=== PATIENT | female | born 1965 | race Caucasian/White ===

== ENCOUNTER 2017-09-11 04:19 | Emergency (ER) | payer OTHER ==
[2017-09-11] MEDS ORDERED: methylPREDNISolone Sodium Succinate 125 MG/2 ML SDV IVPUSH ONE (04:46)
[2017-09-11] MEDS ORDERED: Albuterol/Ipratropium 3.0-0.5 MG/3 ML Neb Soln NEB ONE (04:47)
[2017-09-11] MEDS ORDERED: Albuterol 0.083% 2.5 MG/3 ML Neb Soln NEB ONE (05:21)
[2017-09-11] MEDS ORDERED: Azithromycin 250 MG Tab PO ONE (05:21)
--- NOTE | 2017-09-11 05:37 | EDM.PDOC ---
ED HPI GENERAL MEDICAL PROBLEM - General Chief Complaint: Abdominal Pain Stated Complaint: TROUBLE BREATHING AND ABD PAIN [id number] Time Seen by Provider: 09/11/17 04:30 Source of Information: Reports: Patient History Limitations: Reports: No Limitations - History of Present Illness INITIAL COMMENTS - FREE TEXT/NARRATIVE: c/o difficulty with asthma, and cough. Feeling SOB and RUQ pain No fever or chills. Inhalers not helping Cough productive thick at times. Had recently comleted course of Doxy for bronchitis. 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: Other Medication(s) Right Upper Abdominal Pain Score (Numeric/FACES): 4 - Related Data Allergies Allergy/AdvReac Type Severity Reaction Status Date / Time levofloxacin [From Levaquin] Allergy Hives Verified 09/11/17 04:54 Home Meds: Home Meds Albuterol Sulfate [Proventil Hfa] 1 puff INH ASDIRECTED 09/11/17 [History] Cetirizine [ZyrTEC] 1 tab PO DAILY 09/11/17 [History] Mometasone/Formoterol [Dulera 200-5 MCG] 2 inh INH BID 09/11/17 [History] Montelukast [Singulair] 1 tab PO DAILY 09/11/17 [History] Omeprazole 1 cap PO DAILY 09/11/17 [History] Past Medical History HEENT History: Reports: Impaired Vision Respiratory History: Reports: Asthma, Bronchitis, Recurrent Gastrointestinal History: Reports: GERD, Pancreatitis 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 OB/BYN History: hysterectomy - Past Surgical History HEENT Surgical History: Reports: Tonsillectomy GI Surgical History: Reports: Appendectomy, Cholecystectomy Musculoskeletal Surgical History: Reports: Other (See Below) Other Musculoskeletal Surgeries/Procedures:: ankle surgery Social & Family History - Tobacco Use Smoking Status *Q: Current Every Day Smoker Years of Tobacco use: 10 Packs/Tins Daily: 1 Second Hand Smoke Exposure: Yes - Caffeine Use Caffeine Use: Reports: Coffee, Soda - Recreational Drug Use Recreational Drug Use: No ED ROS GENERAL - Review of Systems Review Of Systems: See Below Constitutional: Reports: Fever, Malaise, Decreased Appetite HEENT: Reports: No Symptoms Respiratory: Reports: Shortness of Breath, Wheezing, Cough, Sputum Cardiovascular: Reports: No Symptoms GI/Abdominal: Reports: Abdominal Pain (RQ) : Reports: No Symptoms Musculoskeletal: Reports: No Symptoms Skin: Reports: No Symptoms Neurological: Reports: No Symptoms ED EXAM, GENERAL - Physical Exam Exam: See Below Exam Limited By: No Limitations General Appearance: Alert, Mild Distress Eye Exam: Bilateral Eye: EOMI Ears: Normal External Exam Nose: Normal Inspection Throat/Mouth: Normal Inspection Head: Atraumatic, Other Neck: Normal Inspection Respiratory/Chest: Decreased Breath Sounds, Rhonchi (right), Wheezing ( inspiratory expiratory bilateral) Cardiovascular: Normal Peripheral Pulses, Regular Rate, Rhythm, No Edema GI/Abdominal: Normal Bowel Sounds, Soft, Tender (RUQ) Extremities: Normal Inspection Neurological: Alert, Oriented, Normal Cognition Psychiatric: Normal Affect Skin Exam: Warm, Dry, Intact, Normal Color Course - Vital Signs Last Recorded V/S: Last Vital Signs Temp 97.9 F 09/11/17 04:30 Pulse 93 09/11/17 04:30 Resp 23 H 09/11/17 04:30 BP 137/90 09/11/17 04:30 Pulse Ox 96 09/11/17 04:30 - Orders/Labs/Meds Orders: Active Orders 24 hr Category Date Time Status RT Aerosol Therapy [RC] ASDIRECTED Care 09/11/17 04:47 Active RT Aerosol Therapy [RC] ASDIRECTED Care 09/11/17 05:21 Active Labs: Laboratory Tests 09/11/17 09/11/17 09/11/17 Range/Units 04:56 04:56 04:56 WBC 11.0 H (5.0-10.0) 10^3/uL RBC 5.38 (4.2-5.4) 10^6/uL Hgb 16.2 H (12.0-16.0) g/dL Hct 48.7 H (37.0-47.0) % MCV 90.5 (80-100) fL MCH 30.1 (27.0-34.0) pg MCHC 33.3 (33.0-35.0) g/dL Plt Count 259 (150-450) 10^3/uL Neut % (Auto) 62.8 (42.2-75.2) % Lymph % (Auto) 27.8 (20.5-50.1) % [place] % (Auto) 5.9 (2-8) % Eos % (Auto) 3.1 H (1.0-3.0) % Baso % (Auto) 0.4 (0.0-1.0) % Sodium 140 (135-145) mmol/L Potassium 3.9 (3.6-5.0) mmol/L Chloride 107 (101-111) mmol/L Carbon Dioxide 26.0 (21.0-31.0) mmol/L Anion Gap 10.9 BUN 16 (7-18) mg/dL Creatinine 1.0 (0.6-1.3) mg/dL Est Cr Clr Drug Dosing 64.72 mL/min Estimated GFR (MDRD) 58 BUN/Creatinine Ratio 16.00 Glucose 102 (74-105) mg/dL Lactic Acid 0.9 (0.5-2.2) mmol/L Calcium 9.8 (8.4-10.2) mg/dl Total Bilirubin 1.0 (0.2-1.0) mg/dL AST 46 H (10-42) IU/L ALT 99 H (10-60) IU/L Alkaline Phosphatase 74 (42-121) IU/L Total Protein 7.6 (6.7-8.2) g/dl Albumin 4.4 (3.2-5.5) g/dl Globulin 3.2 Albumin/Globulin Ratio 1.38 Amylase 69 (28-100) U/L Lipase 40 (22-51) U/L Meds: Medications Discontinued Medications Generic Name Dose Route Start Last Admin Trade Name Freq PRN Reason Stop Dose Admin Albuterol 2.5 mg 09/11/17 05:21 09/11/17 05:27 Proventil Neb Soln NEB 09/11/17 05:22 2.5 mg ONETIME ONE Administration Albuterol/Ipratropium 3 ml 09/11/17 04:47 09/11/17 04:57 Duoneb 3.0-0.5 Mg/3 Ml NEB 09/11/17 04:48 3 ml ONETIME ONE Administration Azithromycin 500 mg 09/11/17 05:21 09/11/17 05:26 Zithromax PO 09/11/17 05:22 500 mg ONETIME ONE Administration Methylprednisolone Sodium Succinate 125 mg 09/11/17 04:46 09/11/17 04:57 Solu-Medrol IVPUSH 09/11/17 04:47 125 mg ONETIME ONE Administration Departure - Departure Time of Disposition: 05:32 Disposition: Home, Self-Care 01 Condition: Good Clinical Impression: Asthma exacerbation Qualifiers: Asthma severity: moderate Asthma persistence: persistent Qualified Code(s): J45.41 - Moderate persistent asthma with (acute) exacerbation RML pneumonia Qualifiers: Pneumonia type: due to unspecified organism Qualified Code(s): J18.1 - Lobar pneumonia, unspecified organism - Discharge Information Instructions: Asthma, Adult, [id number] Forms: ED Department Discharge Additional Instructions: albuterol inhaler 2 puffs every 4 hours as needed albuterol neb 2.5/3ml one every 4 hours as needed #40 [place]on 200mg one every 8 hours as needed #30 Azithromycin 250mg one daily x 4 days prednisone 60mg x2 days, 40mg x 20x 5 days #16 follow up with primary care1-2 weeks, sooner if symptoms worsen - My Orders Last 24 Hours: My Active Orders 09/11/17 04:47 RT Aerosol Therapy [RC] ASDIRECTED 09/11/17 05:21 RT Aerosol Therapy [RC] ASDIRECTED - Assessment/Plan Last 24 Hours: My Active Orders 09/11/17 04:47 RT Aerosol Therapy [RC] ASDIRECTED 09/11/17 05:21 RT Aerosol Therapy [RC] ASDIRECTED
== END 2017-09-11 06:04 | disposition home or self-care (01) ==
LOC: DL.ED 04:19
DX: J45.41 Moderate persistent asthma with (acute) exacerbation (principal); J18.9 Pneumonia, unspecified organism; K21.9 Gastro-esophageal reflux disease without esophagitis; F17.210 Nicotine dependence, cigarettes, uncomplicated; Z88.1 Allergy status to other antibiotic agents; Z79.899 Other long term (current) drug therapy
CPT/HCPCS: 36415; 71046; 80053; 82150; 83605; 83690; 85025; 94640; 96374; 99284; A9270; J2930; J7620